=== PATIENT | female | born 1965 | race African-American/Black ===

== ENCOUNTER 2017-01-09 17:32 | Emergency (ER) | payer OTHER ==
[~2017-01-09] VITALS: Ht 165.1 cm; Wt 87.4 kg
[~2017-01-09 17:32] MED LIST: ALPRAZOLAM0.5 MG PO; ATORVASTATIN CA20 MG PO; CATAPRES0.1 MG PO; DOXEPIN HCL25 MG PO; DOXYCYCLINE HY100 MG PO; DURAGESIC100 MCG; DURAGESIC100 MCG TD; EFFEXOR37.5 MG PO; ENDOCET 5-3251 EACH PO; FERROUS SULFAT325 MG PO; HYCODAN SYRUP480 ML PO; IBUPROFEN800 MG PO; LIPITOR20 MG PO; LISINOPRIL40 MG PO; LOPRESSOR50 MG PO; LORATADINE10 M2 PO; NORCO 5/3251 TABLET PO; OMEPRAZOLE20 MG PO; PERPHENAZINE2 MG PO; PROMETHAZINE HC25 M1 PO; PROTONIX40 MG PO; PROZAC20 MG PO; RANITIDINE HCL150 MG PO; REGLAN10 MG PO; TRAZODONE HCL50 MG PO; VENLAFAXINE HCL75 M3 PO; VENTOLIN HFA18 GM IH; XANAX0.5 MG PO; ZESTORETIC,P1 TABLE1; ZOFRAN4 MG PO; [UNRECOGNIZED DRUG - OTHER] PO
[2017-01-09] MEDS ORDERED: CLONIDINE HCL0.1 MG PO (18:51)
[2017-01-09 21:27] VITALS: BP 182/102
== END 2017-01-09 21:28 | disposition home or self-care (01) ==
LOC: EME 17:32
DX: G89.29 Other chronic pain (principal); M54.5 Low back pain; I10 Essential (primary) hypertension; M79.7 Fibromyalgia; Z88.6 Allergy status to analgesic agent; F17.200 Nicotine dependence, unspecified, uncomplicated
CPT/HCPCS: 99281; 99284; J3010

== ENCOUNTER 2017-03-02 10:48 | Emergency (ER) | payer OTHER ==
[~2017-03-02] VITALS: Ht 167.6 cm; Wt 89.0 kg
[~2017-03-02 10:48] MED LIST changes: +CLONIDINE HCL0.1 MG PO
[2017-03-02 11:36] LABS: HEMATOCRIT 38.8 % (36.0-46.0); MCH 29.2 PG (29.0-34.0); MCHC 32.2 G/DL (30.0-36.0); MCV 90.7 FL (83-99); RBC DIS.WIDTH-CV 12.4 % (11.8-14.6); RED BLOOD COUNT 4.28 M/uL (3.80-5.20); WHITE BLOOD COUNT 4.9 K/uL (4.1-10.2)
[2017-03-02 11:43] LABS: CHLORIDE 102 mEq/L (99-109); POTASSIUM 3.9 mEq/L (3.7-5.4); SODIUM 138 mEq/L (136-147)
[2017-03-02 11:45] LABS: GLUCOSE 82 mg/dL (70-99)
[2017-03-02 11:46] LABS: ANION GAP 7 MEQ/L (2-14)
[2017-03-02 11:49] LABS: GFR ESTIMATE (CALCULATED) > 59 mL/min/
[2017-03-02 11:50] LABS: UREA NITROGEN (BUN) 12 mg/dL (9-23)
[2017-03-02 11:56] LABS: TROP-I INTERPRETATION NEGATIVE; TROPONIN-I < 0.01 ng/mL (0.0-0.30)
[2017-03-02 12:35] LABS: MEAN PLAT.VOLUME 12.4 uM^3 (9.5-12.4); PLATELET COUNT 184 K/uL (156-360)
[2017-03-02 13:56] LABS: TROP-I INTERPRETATION NEGATIVE; TROPONIN-I 0.01 ng/mL (0.0-0.30)
[2017-03-02] MEDS ORDERED: PERCOCET 5/31 TABLET PO (14:06)
[2017-03-02 14:39] VITALS: BP 181/97
== END 2017-03-02 14:41 | disposition home or self-care (01) ==
LOC: EME 10:48
PROVIDERS: Emergency Medicine
DX: R07.89 Other chest pain (principal); G89.29 Other chronic pain; K21.9 Gastro-esophageal reflux disease without esophagitis; I10 Essential (primary) hypertension; M79.7 Fibromyalgia; F17.200 Nicotine dependence, unspecified, uncomplicated
CPT/HCPCS: 71020; 80048; 84484; 85027; 93005; 99281; 99285; J1885

== ENCOUNTER 2017-11-11 18:48 | Emergency (ER) | payer OTHER ==
[~2017-11-11] VITALS: Ht 167.6 cm; Wt 88.5 kg
[~2017-11-11 18:48] MED LIST changes: -FLEXERIL10 MG PO; -TORADOL10 MG PO
[2017-11-11] MEDS ORDERED: FLEXERIL10 MG PO (22:31)
[2017-11-11 22:36] VITALS: BP 214/109
== END 2017-11-11 22:56 | disposition home or self-care (01) ==
LOC: EME 18:48
DX: S16.1XXA Strain of muscle, fascia and tendon at neck level, initial encounter (principal); M54.6 Pain in thoracic spine; V49.40XA Driver injured in collision with unspecified motor vehicles in traffic accident, initial encounter; Y92.410 Unspecified street and highway as the place of occurrence of the external cause; G89.29 Other chronic pain; M79.7 Fibromyalgia; K21.9 Gastro-esophageal reflux disease without esophagitis; I10 Essential (primary) hypertension; F41.9 Anxiety disorder, unspecified; F32.9 Major depressive disorder, single episode, unspecified; M54.9 Dorsalgia, unspecified; D64.9 Anemia, unspecified; Z98.51 Tubal ligation status; Z90.49 Acquired absence of other specified parts of digestive tract; F17.200 Nicotine dependence, unspecified, uncomplicated; Z88.8 Allergy status to other drugs, medicaments and biological substances
CPT/HCPCS: 71250; 72125; 99281; 99284

== ENCOUNTER → 2017-11-11 | Outpatient (CLI) | payer OTHER ==
[~2017-11-11] MED LIST changes: +ACID CONTROL150 MG PO; +CELEXA20 MG PO; +CLIMARA0.075 MG TD; +FLEXERIL10 MG PO; -LISINOPRIL40 MG PO; +MOBIC15 MG PO; +PERCOCET 5/31 TABLET PO; +PRILOSEC20 MG PO; +TORADOL10 MG PO; +VALIUM5 MG PO; +XANAX0.25 MG PO; +ZESTORETIC 20-1 EAC2 PO
== END | disposition home or self-care (01) ==
LOC: CDC 13:58
DX: Z01.810 Encounter for preprocedural cardiovascular examination (principal); R10.31 Right lower quadrant pain; R00.1 Bradycardia, unspecified; I51.7 Cardiomegaly; R94.31 Abnormal electrocardiogram [ECG] [EKG]
CPT/HCPCS: 93000

== ENCOUNTER 2017-11-15 09:55 | Day surgery (SDC) | payer OTHER ==
[~2017-11-15] VITALS: Ht 167.6 cm; Wt 87.1 kg
[~2017-11-15 09:55] MED LIST changes: +FLEXERIL10 MG PO
[2017-11-15 10:24] VITALS: BP 159/76
[2017-11-15] MEDS ORDERED: TORADOL10 MG PO (14:40)
[2017-11-15] MEDS ORDERED: PERCOCET 5/31 TABLET PO (15:26)
[2017-11-15 16:26] VITALS: BP 188/89
[2017-11-15 17:35] VITALS: BP 194/93
== END 2017-11-15 18:00 | disposition home or self-care (01) ==
LOC: SDC
PROC: 0WBH4ZX Excision of Retroperitoneum, Percutaneous Endoscopic Approach, Diagnostic (ICD-10-PCS; principal; 2017-11-15)
PROC: 0DNW4ZZ Release Peritoneum, Percutaneous Endoscopic Approach (ICD-10-PCS; principal; 2017-11-15)
DX: K66.8 Other specified disorders of peritoneum (principal); N73.6 Female pelvic peritoneal adhesions (postinfective); N80.3 Endometriosis of pelvic peritoneum; M79.7 Fibromyalgia; Z90.710 Acquired absence of both cervix and uterus; F17.200 Nicotine dependence, unspecified, uncomplicated
CPT/HCPCS: 88305; J0131; J0360; J0690; J1885; J2250; J2405; J3010; S0020